=== PATIENT | male | born 1960 | race African-American/Black ===

== ENCOUNTER 2017-05-27 05:59 | Emergency (ER) | payer OTHER ==
[~2017-05-27] VITALS: Ht 172.7 cm; Wt 150.0 kg
[2017-05-27] MEDS ORDERED: HYDRALAZINE 20MG/ML VIAL IV ONE (10:30)
[2017-05-27] MEDS ORDERED: CLONIDINE 0.2MG TABLET PO ONE (13:00)
[2017-05-27] MEDS ORDERED: CLONIDINE 0.2MG TABLET ONE (13:07)
[2017-05-27 13:54] VITALS: BP 197/110
== END 2017-05-27 13:56 | disposition home or self-care (01) ==
LOC: ER 05:59
DX: S00.83XA Contusion of other part of head, initial encounter (principal); S40.012A Contusion of left shoulder, initial encounter; I11.0 Hypertensive heart disease with heart failure; I50.9 Heart failure, unspecified; E11.9 Type 2 diabetes mellitus without complications; V49.88XA Car occupant (driver) (passenger) injured in other specified transport accidents, initial encounter; Y93.89 Activity, other specified; Y92.89 Other specified places as the place of occurrence of the external cause; Y99.8 Other external cause status
CPT/HCPCS: 70486; 73030; 99284